=== PATIENT | female | born 1945 | race Caucasian/White ===

== ENCOUNTER → 2016-07-21 | Outpatient (CLI) | payer MEDICARE ==
--- NOTE | 2016-07-23 09:33 | MM ---
Reason for exam: screening (asymptomatic). Last mammogram was performed 1 year ago. History: Patient is postmenopausal. Family history of breast cancer in maternal aunt at age 57, breast cancer in maternal aunt at age 60, breast cancer in sister at age 59, and breast cancer in cousin. Took estrogen for 10 years beginning at age 42. Physical Findings: A clinical breast exam by your physician is recommended on an annual basis and results should be correlated with mammographic findings. MG Screening Mammo w CAD Bilateral CC and MLO view(s) were taken. Prior study comparison: July 19, 2015, bilateral MG screening mammo w CAD. July 14, 2014, bilateral MG screening mammo w CAD. There are scattered fibroglandular densities. No significant changes when compared with prior studies. ASSESSMENT: Benign, BI-RAD 2 RECOMMENDATION: Routine screening mammogram of both breasts in 1 year.
== END | disposition home or self-care (01) ==
LOC: RADMAMWWP 10:07
PROVIDERS: ATTEND Family Medicine
DX: Z12.31 Encounter for screening mammogram for malignant neoplasm of breast (principal)

== ENCOUNTER → 2017-08-05 | Outpatient (CLI) | payer MEDICARE ==
--- NOTE | 2017-08-05 16:30 | BD ---
EXAMINATION TYPE: MG DEXA axial skeleton. DATE OF EXAM: 08/05/2017 COMPARISON: NONE CLINICAL HISTORY: 72-year-old female postmenopausal screening without HRT Height: 5 FT 3 IN Weight: 191 FRAX RISK QUESTIONS: Alcohol (3 or more units per day): NO Family History (Parent hip fracture): NO Glucocorticoids (More than 3mos): NO (Ex: prednisone, prednisolone, methylprednisolone, dexamethasone, and hydrocortisone). History of Fracture in Adulthood: NO Secondary Osteoporosis: 1. Type 1 Diabetes: NO 2. Hyperthyroidism: NO 3. Menopause before 45: YES 4. Malnutrition: NO 5. Chronic liver disease: NO Rheumatoid Arthritis: NO Current Tobacco Use: NO RISK FACTORS HISTORY OF: Family History of Osteoporosis: YES Active: NO Postmenopausal woman:TOTAL HYST AGE 40 Take estrogen and/or progesterone medications: How long: TOOK HRT 3 YEARS NO LONGER MEDICATIONS: Thyroid Medications: YES Which medication: SYNTHROID How Lon YEARS Additional Medications: SYNTHROID ,BUSPAR,PAXIL,HYDROCHLOROTHIAZIDE,ADIVAN Additional History: EXAM MEASUREMENTS: Bone mineral densitometry was performed using the [employer] System. Bone mineral density as measured about the Lumbar spine is: ----- L1-L4(G/cm2): 1.248 T Score Values are as follows: ----- L2: 0.4 ----- L3: 0.6 ----- L4: 0.9 ----- L1-L4: 0.6 Bone mineral density has: INCREASED 3.6 % since study of: 2011 Bone mineral density about the R hip (g/cm2): 1.082 Bone mineral density about the L hip (g/cm2): 1.065 T Score values are as follows: -----R Neck: 0.3 -----L Neck: 0.2 -----R Total: 1.6 -----L Total: 1.7 Bone mineral density has: INCREASED 3.8 % since study of: 2011 IMPRESSION: Normal (Values between +1 and -1 indicate normal bone mass). Consider repeating this study in 5 year s or sooner if there is some new clinical indication. NOTE: T-SCORE=SD OF THE YOUNG ADULT MEAN.
--- NOTE | 2017-08-06 10:06 | MM ---
Reason for exam: screening (asymptomatic). Last mammogram was performed 1 year ago. History: Patient is postmenopausal. Family history of breast cancer in maternal aunt at age 57, breast cancer in maternal aunt at age 60, breast cancer in sister at age 59, and breast cancer in cousin. Took estrogen for 10 years beginning at age 42. Physical Findings: A clinical breast exam by your physician is recommended on an annual basis and results should be correlated with mammographic findings. MG 3D Screening Mammo W/Cad Bilateral CC and MLO view(s) were taken. Prior study comparison: July 21, 2016, bilateral MG screening mammo w CAD. July 19, 2015, bilateral MG screening mammo w CAD. There are scattered fibroglandular densities. No suspicious abnormality. No significant changes when compared with prior studies. ASSESSMENT: Negative, BI-RAD 1 RECOMMENDATION: Routine screening mammogram of both breasts in 1 year.
== END | disposition home or self-care (01) ==
LOC: RADMAMWWP 15:27
PROVIDERS: ATTEND Family Medicine
DX: Z12.31 Encounter for screening mammogram for malignant neoplasm of breast (principal); M89.9 Disorder of bone, unspecified; Z78.0 Asymptomatic menopausal state; Z80.3 Family history of malignant neoplasm of breast
CPT/HCPCS: 77063; 77067; 77080

== ENCOUNTER → 2017-08-17 | Outpatient (CLI) | payer MEDICARE ==
--- NOTE | 2017-08-17 16:42 | XR ---
EXAMINATION TYPE: XR chest 2V DATE OF EXAM: 08/17/2017 COMPARISON: NONE INDICATION: Cough TECHNIQUE: Frontal and lateral views of the chest are obtained. FINDINGS: The heart size is normal. The pulmonary vasculature is normal. The lungs are clear. IMPRESSION: 1. No acute pulmonary process.
== END | disposition home or self-care (01) ==
LOC: RADXRMAIN 15:13
PROVIDERS: ATTEND Family Medicine
DX: R05 Cough (principal)
CPT/HCPCS: 71046

== ENCOUNTER → 2017-10-06 | Outpatient (CLI) | payer MEDICARE ==
--- NOTE | 2017-10-06 11:23 | CT ---
EXAMINATION TYPE: CT chest wo con DATE OF EXAM: 10/06/2017 COMPARISON: 10/14/2011 HISTORY: Cough variant asthma CT DLP: 726.80 mGycm, Automated exposure control for dose reduction was used. CONTRAST: None TECHNIQUE: Axial images were obtained at 1 mm thick sections at 10 mm intervals. This will limit po rtions of the examination which may not be visualized within the [id number]. Images were obtained in the prone and supine views. FINDINGS: Portion of the thyroid visualized is normal. Subglottic airway appears normal. Proximal br onchial tree visualized appears normal. There is some atelectasis within the lingula on the prone images. This removed all resolved on the esparza pine view. No bronchiectasis is evident. No suspicious nodules or masses are evident. No persistent s uspicious infiltrates are evident. No enlarged mediastinal or hilar adenopathy is evident. Few scattered small mediastinal lymph nodes are present not enlarged by CT criteria. The ascending aorta diameter at the level of the main pulmonary artery is 3.2 cm. The main pulmonary artery diameter at the bifurcation is 2.[address] sections are obtained through the upper abdomen. Abdomen is essentially unremarkable. IMPRESSIONS: 1. Normal High Resolution Chest CT.
== END ==
LOC: RADCTMAIN 08:27
PROVIDERS: ATTEND Family Medicine
DX: J45.991 Cough variant asthma (principal)
CPT/HCPCS: 71250

== ENCOUNTER → 2018-02-16 | Outpatient (CLI) | payer MEDICARE ==
--- NOTE | 2018-02-16 16:18 | CT ---
EXAMINATION TYPE: CT pelvis w con DATE OF EXAM: 02/16/2018 COMPARISON: None HISTORY: Pain at hysterectomy incision, goes down bilateral legs and groin. Incisional hernia per ord er. CT DLP: 785 mGycm Automated exposure control for dose reduction was used. CONTRAST: Performed without oral but with IV Contrast, patient injected with 100 mL of Isovue M300. FINDINGS: No suspicious ventral or inguinal hernia identified. Visualized bowel shows no suspicious dilatation. Visualized portion of both ureters and bladder are unremarkable. Uterus is surgically absent. There is no concerning pelvic fluid collection. There is no suspicious pelvic adenopathy. Moderate disc space narrowing with vacuum disc phenomenon L3-L4 and L4-L5 levels is present. There is facet arthropathy lower lumbar levels. There is moderate axial joint space loss in both hips. IMPRESSION: NO SUSPICIOUS FINDING SEEN TO ACCOUNT FOR PATIENT'S SYMPTOMS. NO SIGNIFICANT VENTRAL WALL OR INCISIO NAL HERNIA IDENTIFIED.
== END | disposition home or self-care (01) ==
LOC: RADCTMAIN 14:46
PROVIDERS: ATTEND Surgery
DX: K43.2 Incisional hernia without obstruction or gangrene (principal)
CPT/HCPCS: 82565; 84520; 72193; 36415; Q9967

== ENCOUNTER → 2018-05-18 | Outpatient (CLI) | payer MEDICARE ==
--- NOTE | 2018-05-18 15:51 | XR ---
EXAMINATION TYPE: XR chest 2V DATE OF EXAM: 05/18/2018 COMPARISON: 08/17/2017 HISTORY: Presurgical evaluation. TECHNIQUE: Frontal and lateral views of the chest are obtained. FINDINGS: There is no focal air space opacity, pleural effusion, or pneumothorax seen. The cardiac silhouette size is within normal limits. The osseous structures are intact. Minimal multilevel dege nerative changes of the thoracic spine are noted. IMPRESSION: No acute cardiopulmonary process.
== END | disposition home or self-care (01) ==
LOC: RADXRMAIN 15:37
PROVIDERS: ATTEND Family Medicine
DX: Z01.818 Encounter for other preprocedural examination (principal)
CPT/HCPCS: 71046

== ENCOUNTER → 2018-09-03 | Outpatient (CLI) | payer MEDICARE ==
--- NOTE | 2018-09-06 11:29 | MM ---
Reason for exam: screening (asymptomatic). Last mammogram was performed 1 year and 1 month ago. History: Patient is postmenopausal. Family history of breast cancer in maternal aunt at age 57, breast cancer in maternal aunt at age 60, breast cancer in sister at age 59, and breast cancer in cousin. Took estrogen for 10 years beginning at age 42. Physical Findings: A clinical breast exam by your physician is recommended on an annual basis and results should be correlated with mammographic findings. MG 3D Screening Mammo W/Cad Bilateral CC and MLO view(s) were taken. Prior study comparison: August 05, 2017, bilateral MG 3d screening mammo w/cad. July 21, 2016, bilateral MG screening mammo w CAD. The breast tissue is heterogeneously dense. This may lower the sensitivity of mammography. Benign appearing bilateral calcifications. No suspicious abnormality. No significant changes when compared with prior studies. ASSESSMENT: Benign, BI-RAD 2 RECOMMENDATION: Routine screening mammogram of both breasts in 1 year.
== END ==
LOC: RADMAMWWP 08:56
PROVIDERS: ATTEND Family Medicine
DX: Z12.31 Encounter for screening mammogram for malignant neoplasm of breast (principal)
CPT/HCPCS: 77063; 77067

== ENCOUNTER 2019-04-20 23:25 | Emergency (ER) | payer MEDICARE ==
[2019-04-20 23:34] VITALS: RESP 18; TEMP 98.6
--- NOTE | 2019-04-20 23:57 | ED ---
General Adult HPI - General Chief complaint: Fall Stated complaint: Fall Time Seen by Provider: 04/20/19 23:36 Source: patient, family, RN notes reviewed Mode of arrival: wheelchair Limitations: no limitations - History of Present Illness Initial comments: 74 year old female with a past medical history of asthma, hypertension presents to the emergency department for a chief complaint of fall. Patient states that around 10:30 or approximately an hour prior to arrival patient was walking through her house. States the lights are off. Patient states she tripped over a playpen and fell onto her right hip and right elbow. Patient denies hitting her head. Denies any blood thinners usage. States her right elbow feels okay however she cannot stand on her right hip. States she called ambulance and they helped her into her car. Patient had Tylenol prior to arrival and is refusing pain medication.Patient has no other complaints at this time including shortness of breath, chest pain, abdominal pain, nausea or vomiting, headache, or visual changes. - Related Data Allergies Allergy/AdvReac Type Severity Reaction Status Date / Time No Known Allergies Allergy Verified 04/20/19 23:34 Review of Systems ROS Statement: Those systems with pertinent positive or pertinent negative responses have been documented in the HPI. ROS Other: All systems not noted in ROS Statement are negative. Past Medical History Past Medical History: Asthma, Hypertension History of Any Multi-Drug Resistant Organisms: None Reported Past Surgical History: Bladder Surgery, Cholecystectomy, Hysterectomy Additional Past Surgical History / Comment(s): Eye surg, Past Psychological History: No Psychological Hx Reported Smoking Status: Never smoker Past Alcohol Use History: None Reported Past Drug Use History: None Reported General Exam - General Exam Comments Initial Comments: Patient has full range of motion of the right elbow. Radial pulses 2+. No significant tenderness of the right elbow. Very small superficial abrasion noted over the olecranon. Limitations: no limitations General appearance: alert, in no apparent distress Head exam: Present: atraumatic, normocephalic, normal inspection Eye exam: Present: normal appearance, PERRL, EOMI. Absent: scleral icterus, conjunctival injection, periorbital swelling ENT exam: Present: normal exam, mucous membranes moist, TM's normal bilaterally, normal external ear exam Neck exam: Present: normal inspection, full ROM. Absent: tenderness, meningismus, lymphadenopathy Respiratory exam: Present: normal lung sounds bilaterally. Absent: respiratory distress, wheezes, rales, rhonchi, stridor Cardiovascular Exam: Present: regular rate, normal rhythm, normal heart sounds. Absent: systolic murmur, diastolic murmur, rubs, gallop, clicks GI/Abdominal exam: Present: soft, normal bowel sounds. Absent: distended, tenderness, guarding, rebound, rigid Extremities exam: Present: normal capillary refill (Capillary refill less than 2 seconds, DP pulse 2+ in the right lower extremity.), other (Erythema noted to the lateral aspect of the right lower extremity. Small contusion.) Neurological exam: Present: alert Course Vital Signs 04/20/19 23:27 Temperature 98.6 F Pulse Rate 82 Respiratory 18 Rate Blood Pressure 180/73 O2 Sat by Pulse 97 Oximetry - Reevaluation(s) Reevaluation #1: 04/20/19 23:47 Patient offered pain medication, refusing at this time. She had Tylenol prior to arrival and states this helped with her pain. Medical Decision Making - Medical Decision Making Patient has full range of motion of the right head. Some mild tenderness to the lateral proximal right femur. Neurovascular status intact in the right lower extremity. Patient initially refused pain medication but then did request pain medication which was given to her.X-ray of the pelvis shows no fracture or dislocation. X-ray of the femur shows no acute fracture or dislocation. She was reevaluated. Patient is ambulatory on the right hip and refused a wheelchair to go to the bathroom. Patient walked down the rowan to the bathroom. I discussed possibility of ordering a CAT scan however patient refuses at this time stating her hip feels much better. Patient will be discharged home. However I recommended returning if he has she has any worsening symptoms or becomes unable to ambulate - Radiology Data Radiology results: report reviewed, image reviewed Disposition Clinical Impression: Hip pain, right Disposition: HOME SELF-CARE Condition: Good Instructions (If sedation given, give patient instructions): Hip Pain (ED) Additional Instructions: Please take Motrin and Tylenol for pain. Ice the area. Follow-up with primary care in 1-2 days. If you have any worsening symptoms or are unable to ambulate on the right hip return immediately to the emergency department. Is patient prescribed a controlled substance at d/c from ED?: No Referrals: Tere Powers MD [Primary Care Provider] - 1-2 days Time of Disposition: 00:52
[2019-04-21] MEDS ORDERED: MORPHINE SULFATE 2 MG/ML SYRINGE IM STA (00:16)
--- NOTE | 2019-04-21 00:28 | XR ---
EXAM: XR Right Hip With Pelvis When Performed, 2 or 3 Views CLINICAL HISTORY: History of fall. Unable to ambulate. TECHNIQUE: Two or three views of the right hip, with pelvis when performed. COMPARISON: 02/16/2018. FINDINGS: Bones/joints: Mild osteoarthritic changes about the hip joints are noted. Mild to moderate osteoarthritic changes about the sacroiliac joints are noted, left side more pronounced than the right. Pseudoarthrosis formation of the lateral processes of L5 vertebral body is noted with the bony pelvis. No acute fracture or dislocation. No fracture of the right hip joint is noted. The right femur is unremarkable. Mild osteoarthritic changes about the right knee joint are noted. Soft tissues: Unremarkable. Other findings: Osteitis symphysis pubis is noted. IMPRESSION: No acute fracture or dislocation. Osteoarthritic and degenerative changes as described above.
--- NOTE | 2019-04-21 00:29 | XR ---
EXAM: XR Right Femur, 2 Views CLINICAL HISTORY: Right thigh pain. TECHNIQUE: Frontal and lateral views of the right femur. COMPARISON: None. FINDINGS: Bones/joints: Right hip joint is intact. No acute fracture or dislocation of the right femur is noted. Mild osteoarthritic changes about the right knee joint are noted. Visualized bony pelvis is unremarkable. Soft tissues: The soft tissues are unremarkable. IMPRESSION: No acute fracture or dislocation.
[2019-04-21 01:06] VITALS: BP 121/56; PULSE 75
== END 2019-04-21 01:08 | disposition home or self-care (01) ==
LOC: EC 23:25
DX: M25.551 Pain in right hip (principal); J45.909 Unspecified asthma, uncomplicated; I10 Essential (primary) hypertension
CPT/HCPCS: 73502; 73552; 99283; 96372; J2270

== ENCOUNTER → 2019-07-15 | Outpatient (CLI) | payer MEDICARE ==
--- NOTE | 2019-07-15 15:34 | XR ---
EXAMINATION TYPE: XR lumbar spine 2 or 3V DATE OF EXAM: 07/15/2019 COMPARISON: None HISTORY: Low back pain TECHNIQUE: Three-view lumbar spine FINDINGS: There 5 lumbar-type vertebral bodies. The pedicles are intact. There is narrowing of disc h eight L3-4 L4-5. Posterior disc space narrowing is present L2-3. Some mild diffuse disc space at L5-S 1 is present. Vacuum disc phenomenon is present L2-3 L3-4. Vertebral body heights are preserved. IMPRESSION: 1. Degenerative disc changes greatest L3-4 lumbar spine.
== END | disposition home or self-care (01) ==
LOC: RADXRMAIN 14:33
PROVIDERS: ATTEND Family Medicine
DX: M47.816 Spondylosis without myelopathy or radiculopathy, lumbar region (principal)
CPT/HCPCS: 72100

== ENCOUNTER → 2019-09-21 | Outpatient (CLI) | payer MEDICARE ==
--- NOTE | 2019-09-21 11:21 | MM ---
Reason for exam: screening (asymptomatic). Last mammogram was performed 1 year and 1 month ago. History: Patient is postmenopausal. Family history of breast cancer in maternal aunt at age 57, breast cancer in maternal aunt at age 60, breast cancer in sister at age 59, and breast cancer in cousin. Took estrogen for 10 years beginning at age 42. Physical Findings: A clinical breast exam by your physician is recommended on an annual basis and results should be correlated with mammographic findings. MG 3D Screening Mammo W/Cad Bilateral CC and MLO view(s) were taken. Prior study comparison: September 03, 2018, bilateral MG 3d screening mammo w/cad. August 05, 2017, bilateral MG 3d screening mammo w/cad. There are scattered fibroglandular densities. There is a stable 7mm left upper outer quadrant middle depth mass. Benign appearing bilateral calcifications. No suspicious abnormality. No significant changes when compared with prior studies. ASSESSMENT: Benign, BI-RAD 2 RECOMMENDATION: Routine screening mammogram of both breasts in 1 year.
== END | disposition home or self-care (01) ==
LOC: RADMAMWWP 09:56
PROVIDERS: ATTEND Family Medicine
DX: Z12.31 Encounter for screening mammogram for malignant neoplasm of breast (principal)
CPT/HCPCS: 77063; 77067

== ENCOUNTER 2020-01-16 08:05 | Day surgery (SDC) | payer MEDICARE ==
[2020-01-13 10:02] VITALS: BMI 33.7
[~2020-01-16 08:05] MED LIST: SODIUM CHLORIDE 0.9% 1,000 ML IV SCH
[2020-01-16 08:54] VITALS: RESP 16; TEMP 98.3
[2020-01-16] MEDS ORDERED: SODIUM CHLORIDE 0.9% 500 ML 500 ML IV ONE (08:54)
[2020-01-16 10:46] VITALS: BP 148/76; PULSE 67
--- NOTE | 2020-01-16 13:27 | P.PCN ---
Preoperative Diagnosis: Diagnosis Recurrent dizzy spells Twelve-lead ECG shows sinus rhythm normal KS narrow QRS normal ST segments normal QT interval no epsilon waves no delta waves Tilt table test for protocol Baseline blood pressure 144/67 mmHg Baseline heart rate 80 beats a minute Patient was tilted upright at an angle of 70 per protocol No change in heart rate blood pressure No evidence for neurocardiogenic syncope No evidence for dysautonomia Impression Normal 12-lead ECG Normal heart rate and blood pressure response to upright tilting
== END 2020-01-16 10:47 | disposition home or self-care (01) ==
LOC: CATHEP 08:05
PROVIDERS: ATTEND Internal Medicine Clinical Cardiac Electrophysiology
DX: R42 Dizziness and giddiness (principal); R26.89 Other abnormalities of gait and mobility; Z91.040 Latex allergy status
CPT/HCPCS: 93660

== ENCOUNTER → 2020-02-24 | Outpatient (CLI) | payer MEDICARE ==
--- NOTE | 2020-02-24 08:27 | CT ---
EXAMINATION TYPE: CT brain wo con DATE OF EXAM: 02/24/2020 COMPARISON: None HISTORY: Abnormal imaging, neoplasm of parietal lobe CT DLP: 1017.[address] of the brain was performed. The ventricles, basal cisterns and sulci overlying the cerebral convexities demonstrate mild enlargem ent. There is no evidence for intracranial hemorrhage or sulcal effacement. There is decreased attenuation about the periventricular white matter and deep white matter of both c erebral hemispheres, compatible with chronic small vessel ischemia. Differential diagnosis does inclu de demyelination. No mass effects are seen.No midline shift. Osseous calvarium is intact. If symptoms persist consider MRI. IMPRESSION: 1. Age related atrophic and chronic small vessel ischemic change without acute intracranial process s een at this time. Correlate with any outside studies. Comparison could be performed when and if prior studies do become available.
== END | disposition home or self-care (01) ==
LOC: RADCTMAIN 07:56
PROVIDERS: ATTEND Psychiatry & Neurology Neurology
DX: C71.3 Malignant neoplasm of parietal lobe (principal); G31.1 Senile degeneration of brain, not elsewhere classified; I67.82 Cerebral ischemia
CPT/HCPCS: 70450

== ENCOUNTER → 2020-10-02 | Outpatient (CLI) | payer MEDICARE ==
--- NOTE | 2020-10-04 13:47 | MM ---
Reason for exam: screening (asymptomatic). Last mammogram was performed 1 year ago. History: Patient is postmenopausal. Family history of breast cancer in maternal aunt at age 57, breast cancer in maternal aunt at age 60, breast cancer in sister at age 59, and breast cancer in cousin. Took estrogen for 10 years beginning at age 42. Physical Findings: A clinical breast exam by your physician is recommended on an annual basis and results should be correlated with mammographic findings. MG 3D Screening Mammo W/Cad Bilateral CC and MLO view(s) were taken. Prior study comparison: September 21, 2019, bilateral MG 3d screening mammo w/cad. September 03, 2018, bilateral MG 3d screening mammo w/cad. There are scattered fibroglandular densities. No significant changes when compared with prior studies. ASSESSMENT: Benign, BI-RAD 2 RECOMMENDATION: Routine screening mammogram of both breasts in 1 year.
== END | disposition home or self-care (01) ==
LOC: RADMAMWWP 11:06
PROVIDERS: ATTEND Internal Medicine Geriatric Medicine
DX: Z12.31 Encounter for screening mammogram for malignant neoplasm of breast (principal)
CPT/HCPCS: 77063; 77067

== ENCOUNTER → 2021-10-03 | Outpatient (CLI) | payer MEDICARE ==
--- NOTE | 2021-10-04 09:39 | MM ---
Reason for exam: screening (asymptomatic). Last mammogram was performed 1 year ago. History: Patient is postmenopausal. Family history of breast cancer in daughter, breast cancer in maternal aunt at age 57, breast cancer in maternal aunt at age 60, breast cancer in sister at age 59, and breast cancer in cousin. Took estrogen for 10 years beginning at age 42. Physical Findings: A clinical breast exam by your physician is recommended on an annual basis and results should be correlated with mammographic findings. MG 3D Screening Mammo W/Cad Bilateral CC and MLO view(s) were taken. Prior study comparison: October 02, 2020, bilateral MG 3d screening mammo w/cad. September 21, 2019, bilateral MG 3d screening mammo w/cad. The breast tissue is heterogeneously dense. This may lower the sensitivity of mammography. No significant changes when compared with prior studies. ASSESSMENT: Negative, BI-RAD 1 RECOMMENDATION: Routine screening mammogram of both breasts in 1 year.
== END | disposition home or self-care (01) ==
LOC: RADMAMWWP 10:21
PROVIDERS: ATTEND Family Medicine
DX: Z12.31 Encounter for screening mammogram for malignant neoplasm of breast (principal); Z78.0 Asymptomatic menopausal state; Z80.3 Family history of malignant neoplasm of breast
CPT/HCPCS: 77063; 77067

== ENCOUNTER → 2021-11-12 | Outpatient (CLI) | payer MEDICARE ==
--- NOTE | 2021-11-12 22:25 | BD ---
EXAMINATION TYPE: Axial Bone Density DATE OF EXAM: 11/12/2021 CLINICAL HISTORY: 76 years year old Female. ICD-10 CODE: Z78.0 Post menopausal, M89.9 disorder of silva ne Height: 5 FT 3 IN Weight: 195 FRAX RISK QUESTIONS: Alcohol (3 or more units per day): NO Family History (Parent hip fracture): NO Glucocorticoids (More than 3mos): NO (Ex: prednisone, prednisolone, methylprednisolone, dexamethasone, and hydrocortisone). History of Fracture in Adulthood: NO Secondary Osteoporosis: 1. Type 1 Diabetes: NO 2. Hyperthyroidism: NO 3. Menopause before 45: YES 4. Malnutrition: NO 5. Chronic liver disease: NO Rheumatoid Arthritis: NO Current Tobacco Use: NO RISK FACTORS HISTORY OF: Surgery to Spine/Hip(right/left)/Wrist (right/left): NO Family History of Osteoporosis: NO Active: YES Diet low in dairy products/other sources of calcium: NO Postmenopausal woman: YES Take estrogen and/or progesterone medications: TOO HRT FOR APPROX 4-5 YEARS. NO LONGER TAKES Lost more than 2 inches in height since high school: NO Frequent falls: NO Poor Health: GOOD Hyperparathyroidism: NO Adrenal Insufficiency: NO MEDICATIONS: Thyroid Medications: YES Which medication: SYNTHROID How Long: CLOSE TO 30 YEARS Additional Medications: SYNTHROID, BUSPAR, HYDROCHLOROTHIAZIDE, PAXIL, BRIAN VAN, LAMICTAL, MULTI EYE VIT FOR MACULAR DEGENERATION Additional History: EXAM MEASUREMENTS: Bone mineral densitometry was performed using the [employer] System. Bone mineral density as measured about the Lumbar spine is: ----- L1-L4(G/cm2): 1.295 T Score Values are as follows: ----- L1: 0.6 ----- L2: 0.7 ----- L3: 0.8 ----- L4: 1.3 ----- L1-L4: 1.0 Bone mineral density has: INCREASED 3.2 % since study of: 2018 Bone mineral density about the R hip (g/cm2): 1.093 Bone mineral density about the L hip (g/cm2): 1.056 T Score values are as follows: -----R Neck: 0.4 -----L Neck: 0.1 -----R Total: 1.7 -----L Total: 1.4 Bone mineral density has: DECREASED -1.1 % since study of: 2018 FRAX%s: The graph provided illustrates a 7.2 % chance for a major osteoporotic fx and a 0.6 % chance for the hips probability for fx in 10 years time. IMPRESSION: Normal (Values between +1 and -1 indicate normal bone mass). Consider repeating this study in 5 year s or sooner if there is some new clinical indication. NOTE: T-SCORE=SD OF THE YOUNG ADULT MEAN.
== END | disposition home or self-care (01) ==
LOC: RADBDWWP 10:25
PROVIDERS: ATTEND Family Medicine
DX: M89.9 Disorder of bone, unspecified (principal); Z78.0 Asymptomatic menopausal state
CPT/HCPCS: 77080

== ENCOUNTER → 2022-10-07 | Outpatient (CLI) | payer MEDICARE ==
--- NOTE | 2022-10-08 08:50 | MM ---
Reason for Exam: Screening (asymptomatic). Last mammogram was performed 1 year(s) and 1 month(s) ago. Patient History: Menarche at age 12. First Full-Term at age 23. Left ovary removed at age 42. Right ovary removed at age 42. Hysterectomy at age 42. Postmenopausal. Estrogen for 10 years from age 42 until age 52. Maternal cousin had breast cancer. Maternal aunt had breast cancer, age 57. Maternal aunt had breast cancer, age 60. Sister had breast cancer, age 59. Daughter had breast cancer. Risk Values: Emily 5 year model risk: 7.0%. NCI Lifetime model risk: 13.0%. Prior Study Comparison: 09/21/2019 Bilateral Screening Mammogram, [facility]. 10/02/2020 Bilateral Screening Mammogram, [facility]. 10/03/2021 Bilateral Screening Mammogram, [facility]. Tissue Density: The breast tissue is heterogeneously dense. This may lower the sensitivity of mammography. Findings: Analyzed By CAD. Pattern appears stable. Some chronic nodularity is in the lower outer anterior right breast, present previously. No significant interval changes. No suspicious groups of microcalcifications, spiculated or lobular masses, architectural distortion or other secondary signs of malignancy are mammographically apparent. Overall Assessment: Benign, BI-RAD 2 Management: Screening Mammogram of both breasts in 1 year. A negative mammogram report should not preclude additional follow up of suspicious palpable abnormalities. Patient should continue monthly self breast exam. A clinical breast exam by your physician is recommended on an annual basis and results should be correlated with mammographic findings. Electronically signed and approved by: Castillo Bolivar D.O. Radiologis
== END | disposition home or self-care (01) ==
LOC: RADMAMWWP 11:35
PROVIDERS: ATTEND Family Medicine
DX: Z12.31 Encounter for screening mammogram for malignant neoplasm of breast (principal); Z78.0 Asymptomatic menopausal state; Z80.3 Family history of malignant neoplasm of breast
CPT/HCPCS: 77063; 77067

== ENCOUNTER 2022-11-21 10:37 | Day surgery (SDC) | payer MEDICARE ==
[2022-11-19 14:10] VITALS: BMI 33.5
[~2022-11-21 10:37] MED LIST changes: +LACTATED RINGERS 1,000 ML IV SCH; -SODIUM CHLORIDE 0.9% 1,000 ML IV SCH
[2022-11-21 12:56] VITALS: TEMP 97.5
[2022-11-21] MEDS ORDERED: PROPOFOL 10 MG/ML 20 ML VIAL IV ONE (14:34)
--- NOTE | 2022-11-21 15:14 | P.PCN ---
Date of Procedure: 11/21/22 Procedure(s) Performed: BRIEF HISTORY: Patient is a 77-year-old pleasant white female scheduled for an elective colonoscopy as a part of surveillance of prior history of colon polyps. Last colonoscopy was 3 years ago. PROCEDURE PERFORMED: Colonoscopy with snare polypectomy and tattooing with Dorothy ink PREOPERATIVE DIAGNOSIS: History of colon polyps. IV sedation per Anesthesia. PROCEDURE: After informed consent was obtained, the patient, was brought into the endoscopy unit. IV sedation was administered by Anesthesia under continuous monitoring. Digital rectal examination was normal. Initially the Olympus CF-160 flexible video colonoscope was then inserted in the rectum, gradually advanced into the cecum without any difficulty. Careful examination was performed as the scope was gradually being withdrawn. Ileocecal valve and the appendiceal orifice were visualized and appeared normal. Prep was excellent. Mucosa of the cecum, ascending colon appeared normal. In the hepatic flexure there was a 3 cm broad- based polyp that was removed by piecemeal snare polypectomy and almost complete polypectomy was accomplished. Following polypectomy tattooing was performed with Dorothy ink. Rest of the, transverse colon, appeared normal. In the descending colon there was a 5 limited polyp removed by snare polypectomy. descending colon, sigmoid colon, and rectum appeared normal. Retroflexion was performed in the rectum and no lesions were seen. The patient tolerated the procedure well. IMPRESSION: 3 cm broad-based hepatic flexure polyp status post piecemeal snare polypectomy and almost complete polypectomy accomplished, status post tattooing with Dorothy ink 5 mm descending colon polyp status post snare polyp rectum RECOMMENDATIONS: Findings of this examination were discussed with the patient as well as a family.. She was advised to follow with the biopsy results. She'll be seen in office in 2 weeks. Reason the biopsy results will plan a repeat colonoscopy in 6 months to ensure complete polypectomy
[2022-11-21 15:36] VITALS: BP 142/73; PULSE 78; RESP 18
== END 2022-11-21 16:01 | disposition home or self-care (01) ==
LOC: ORWHC2ENDO 10:37
PROVIDERS: ATTEND Internal Medicine Gastroenterology
DX: Z12.11 Encounter for screening for malignant neoplasm of colon (principal); D12.3 Benign neoplasm of transverse colon; D12.4 Benign neoplasm of descending colon; I10 Essential (primary) hypertension; K21.9 Gastro-esophageal reflux disease without esophagitis; E03.9 Hypothyroidism, unspecified; J45.909 Unspecified asthma, uncomplicated; Z98.51 Tubal ligation status; Z79.51 Long term (current) use of inhaled steroids; Z86.010 Personal history of colon polyps; Z79.899 Other long term (current) drug therapy; Z79.890 Hormone replacement therapy
CPT/HCPCS: 45381; 88305; 45385; J2704; 44404

== ENCOUNTER 2023-05-12 09:21 | Day surgery (SDC) | payer MEDICARE ==
[~2023-05-12 09:21] MED LIST changes: +LIDOCAINE 1% (10MG/ML) FOR IV START INTRADERMA PRN
[2023-05-12 10:16] VITALS: RESP 16; TEMP 97.1
[2023-05-12] MEDS ORDERED: ONDANSETRON 4 MG/2 ML VIAL ONE (10:16)
[2023-05-12] MEDS ORDERED: PROPOFOL 10 MG/ML 20 ML VIAL IV ONE (10:41)
--- NOTE | 2023-05-12 11:18 | P.PCN ---
Date of Procedure: 05/12/23 Procedure(s) Performed: BRIEF HISTORY: Patient is a 78-year-old pleasant white female scheduled for an elective colonoscopy as a part of follow-up of large hepatic flexure polyp noted on a routine screening colonoscopy in November 2022. The polyp was 3 cm broad-based and removed with snare polypectomy and biopsy revealed tubular adenoma. She is scheduled for a repeat surveillance colonoscopy to ensure complete polypectomy PROCEDURE PERFORMED: Colonoscopy With snare polypectomy, argon plasma ablation and Endo Clip placement PREOPERATIVE DIAGNOSIS: Follow-up large hepatic flexure polyp noted on a colonoscopy in November 2022 IV sedation per Anesthesia. PROCEDURE: After informed consent was obtained, the patient, was brought into the endoscopy unit. IV sedation was administered by Anesthesia under continuous monitoring. Digital rectal examination was normal. Initially the Olympus CF-160 flexible video colonoscope was then inserted in the rectum, gradually advanced into the cecum without any difficulty. Careful examination was performed as the scope was gradually being withdrawn. Ileocecal valve and the appendiceal orifice were visualized and appeared normal. Prep was excellent. Mucosa of the cecum, ascending colon normal. There was too centimeter residual polyp noted in hepatic flexure and this was snare polypectomy. Some polyp tissue could not be that and hence argon plasma coagulation was performed. Following the polypectomy Endo Clip was placed to prevent post-polypectomy bleed. Rest of the , transverse colon, descending colon, sigmoid colon, and rectum appeared normal. Retroflexion was performed in the rectum and no lesions were seen. The patient tolerated the procedure well. IMPRESSION: 2 cm broad-based with severe hepatic flexure polyp status post snare polypectomy followed by argon plasma coagulation and Endo Clip placement rest of the colon appeared normal. RECOMMENDATIONS: Findings of this examination were discussed with the patient .as well as a family. She was advised to follow with the biopsy results. She'll be seen in office in 2 weeks. Based on the biopsy results will plan a repeat colonoscopy in 6 months
[2023-05-12 11:56] VITALS: BP 115/66; PULSE 76
== END 2023-05-12 12:10 | disposition home or self-care (01) ==
LOC: ORWHC2ENDO 09:21
PROVIDERS: ATTEND Internal Medicine Gastroenterology
DX: D12.3 Benign neoplasm of transverse colon (principal); I10 Essential (primary) hypertension; E78.5 Hyperlipidemia, unspecified; G47.33 Obstructive sleep apnea (adult) (pediatric); M19.90 Unspecified osteoarthritis, unspecified site; Z91.040 Latex allergy status; Z98.890 Other specified postprocedural states; Z79.899 Other long term (current) drug therapy
CPT/HCPCS: 88305; 45382; 45385; 45388; J2405; J2704

== ENCOUNTER → 2023-10-12 | Outpatient (CLI) | payer MEDICARE ==
--- NOTE | 2023-10-13 12:47 | MM ---
Reason for Exam: Screening (asymptomatic). Last screening mammogram was performed 12 month(s) ago. Patient History: Menarche at age 12. First Full-Term at age 23. Left ovary removed at age 42. Right ovary removed at age 42. Hysterectomy at age 42. Postmenopausal. Estrogen for 10 years from age 42 until age 52. Maternal cousin had breast cancer. Maternal aunt had breast cancer, age 57. Maternal aunt had breast cancer, age 60. Sister had breast cancer, age 59. Daughter had breast cancer, age 48. Risk Values: Emily 5 year model risk: 6.9%. NCI Lifetime model risk: 12.1%. Prior Study Comparison: 10/02/2020 Bilateral Screening Mammogram, [facility]. 10/03/2021 Bilateral Screening Mammogram, [facility]. 10/07/2022 Bilateral MG 3D screening mammo w/cad, [facility]. Tissue Density: There are scattered areas of fibroglandular density. Findings: Analyzed By CAD. There is no suspicious group of microcalcifications or new suspicious mass in either breast. Overall Assessment: Benign, BI-RAD 2 Management: Screening Mammogram of both breasts in 1 year. . Patient should continue monthly self-breast exams. A clinical breast exam by your physician is recommended on an annual basis. This exam should not preclude additional follow-up of suspicious palpable abnormalities. Note on Emily scores and lifetime risk: 1. A Emily score greater than 3% is considered moderate risk. If this is the case, consider specialist referral to assess eligibility for a risk reducing agent. 2. If overall lifetime risk for the development of breast cancer is 20% or higher, the patient may qualify for future screening with alternating mammogram and breast MRI. Electronically signed and approved by: Dileep Mcdowell M.D. Radiologis
== END | disposition home or self-care (01) ==
LOC: RADMAMWWP 10:45
PROVIDERS: ATTEND Family Medicine
DX: Z12.31 Encounter for screening mammogram for malignant neoplasm of breast (principal); Z78.0 Asymptomatic menopausal state; Z80.3 Family history of malignant neoplasm of breast
CPT/HCPCS: 77063; 77067

== ENCOUNTER 2023-11-04 06:40 | Day surgery (SDC) | payer MEDICARE ==
[2023-11-03 10:21] VITALS: BMI 33.5
[~2023-11-04 06:40] MED LIST changes: -LACTATED RINGERS 1,000 ML IV SCH
[2023-11-04] MEDS: LACTATED RINGERS 1,000 ML IV SCH (07:22)
[2023-11-04] MEDS ORDERED: PROPOFOL 10 MG/ML 20 ML VIAL IV ONE (07:50)
[2023-11-04 08:08] VITALS: TEMP 97.1
[2023-11-04 08:58] VITALS: BP 137/76; PULSE 79
[2023-11-04 08:59] VITALS: RESP 18
--- NOTE | 2023-11-04 09:48 | P.PCN ---
Date of Procedure: 11/04/23 Procedure(s) Performed: BRIEF HISTORY: Patient is a 78-year-old pleasant female scheduled for an elective colonoscopy as a part of follow-up of large hepatic flexure polyp noted on colonoscopy in November 2022. She had a repeat surveillance colonoscopy in May 2023 and was noted to have a 2 cm residual polyp in the hepatic flexure that was removed by snare polypectomy. She is scheduled for repeat colonoscopy today. PROCEDURE PERFORMED: Colonoscopy with snare polypectomy. PREOPERATIVE DIAGNOSIS: Follow-up large hepatic flexure polyp diagnosed in November 2022. IV sedation per Anesthesia. PROCEDURE: After informed consent was obtained, the patient, was brought into the endoscopy unit. IV sedation was administered by Anesthesia under continuous monitoring. Digital rectal examination was normal. Initially the Olympus CF-160 flexible video colonoscope was then inserted in the rectum, gradually advanced into the cecum without any difficulty. Careful examination was performed as the scope was gradually being withdrawn. Ileocecal valve and the appendiceal orifice were visualized and appeared normal. Prep was excellent. Mucosa of the cecum, appeared normal. In the hepatic show there was a 5 mm residual hepatic flexure polyp at the site of previous polypectomy that was removed by cold biopsy. Adjacent to this area there were 2 polyps measuring 5 mm in size that were removed by cold snare polypectomy. In the descending colon there was a 6 mm polyp that was removed by cold snare polypectomy. In the sigmoid colon there was a 3 mm polyp that was removed by cold snare polypectomy. Rest of the sigmoid colon, and rectum appeared normal. Retroflexion was performed in the rectum and no lesions were seen. The patient tolerated the procedure well. IMPRESSION: 5 mm residual hepatic lecture polyp status post removal by cold biopsy 5 mm x 2 hepatic flexure polyps adjacent to this area removed by cold snare polypectomy 6 mm descending colon polyp status post cold snare polypectomy 3 mm sigmoid polyp status post cold snare polypectomy RECOMMENDATIONS: Findings of this examination were discussed with the patient as well as her family. She was advised to follow with the biopsy results and have repeat surveillance colonoscopy in 1 year..
== END 2023-11-04 09:24 | disposition home or self-care (01) ==
LOC: ORWHC2ENDO 06:40
PROVIDERS: ATTEND Internal Medicine Gastroenterology
DX: Z12.11 Encounter for screening for malignant neoplasm of colon (principal); D12.4 Benign neoplasm of descending colon; D12.5 Benign neoplasm of sigmoid colon; D12.3 Benign neoplasm of transverse colon; J45.909 Unspecified asthma, uncomplicated; G47.33 Obstructive sleep apnea (adult) (pediatric); K21.9 Gastro-esophageal reflux disease without esophagitis; F90.9 Attention-deficit hyperactivity disorder, unspecified type; M19.90 Unspecified osteoarthritis, unspecified site; Z91.040 Latex allergy status; Z79.899 Other long term (current) drug therapy; Z79.890 Hormone replacement therapy; Z90.710 Acquired absence of both cervix and uterus; Z90.49 Acquired absence of other specified parts of digestive tract
CPT/HCPCS: 88305; 45380; 45385; J2704

== ENCOUNTER 2024-05-05 09:05 | Emergency (ER) | payer MEDICARE ==
[2024-05-05 09:24] VITALS: RESP 18; TEMP 98
--- NOTE | 2024-05-05 09:42 | ED ---
Fall HPI - General Chief Complaint: Fall Stated Complaint: L wrist pain/fall Time Seen by Provider: 05/05/24 09:32 Source: patient, RN notes reviewed Mode of arrival: ambulatory Limitations: no limitations - History of Present Illness Initial Comments: 79-year-old female presents to the emergency department after falling on left wrist yesterday while working in the yard. She states that pain is in the medial aspect of wrist rated 8/10, non radiating. She states that she has decreased active range of motion and passive range of motion to left wrist, denies numbness and tingling to the fingers, denies hitting head and loss of consciousness. Denies taking blood thinners - Related Data Home Medications Medication Instructions Recorded Confirmed Albuterol Inhaler [Ventolin Hfa 2 puff INHALATION RT-QID PRN 01/12/20 11/04/23 Inhaler] Budesonide-Formot 160-4.5 Mcg 2 puff INHALATION BID 01/12/20 11/04/23 [Symbicort 160-4.5 Mcg Inhaler] LORazepam [Ativan] 0.5 mg PO TID PRN 01/12/20 11/04/23 Levothyroxine Sodium 112 mcg PO QAM 01/12/20 11/04/23 Montelukast Sodium [Singulair] 10 mg PO HS 01/12/20 11/04/23 busPIRone HCL [Buspar] 45 mg PO BID 01/12/20 11/04/23 hydroCHLOROthiazide 25 mg PO DAILY 01/12/20 11/04/23 lamoTRIgine 100 mg PO QAM 01/12/20 11/04/23 lamoTRIgine [LaMICtal Odt] 200 mg PO HS 01/12/20 11/04/23 PARoxetine HCL [PARoxetine HCL Cr] 50 mg PO HS 11/03/23 11/04/23 Maldivian Laxative 1 dose PO DAILY PRN 11/03/23 11/04/23 Allergies Allergy/AdvReac Type Severity Reaction Status Date / Time latex Allergy Itching Verified 05/05/24 09:18 Review of Systems ROS Statement: Those systems with pertinent positive or pertinent negative responses have been documented in the HPI. ROS Other: All systems not noted in ROS Statement are negative. Past Medical History Past Medical History: Asthma, GERD/Reflux, Osteoarthritis (OA), Sleep Apnea/CPAP/BIPAP, Thyroid Disorder Additional Past Medical History / Comment(s): flat polyp in the colon,constipation, NO CPAP MACHINE , VERTIGO AT TIMES , SHAKINESS OF HANDS AT TIMES, Hemorrhoids. History of Any Multi-Drug Resistant Organisms: None Reported Past Surgical History: Bladder Surgery, Cholecystectomy, Hysterectomy, Tubal Ligation Additional Past Surgical History / Comment(s): cataract surgery with implants- bilateral, D&C , BLADDER SLING AND CYSTOCELE REPAIR , RIGHT EAR SURGERY, colonoscopy. Past Anesthesia/Blood Transfusion Reactions: Motion Sickness, Postoperative Nausea & Vomiting (PONV) Past Psychological History: ADD/ADHD Smoking Status: Never smoker Past Alcohol Use History: None Reported Past Drug Use History: None Reported - Past Family History Daughter(s) Family Medical History: Cancer, Deep Vein Thrombosis (DVT) Additional Family Medical History / Comment(s): 2 daughter had DVTs,breast CA General Exam Limitations: no limitations Course Vital Signs 05/05/24 05/05/24 09:19 10:55 Temperature 98 F 98 F Pulse Rate 73 71 Respiratory 18 18 Rate Blood Pressure 123/56 120/64 O2 Sat by Pulse 97 97 Oximetry Medical Decision Making - Medical Decision Making Was pt. sent in by a medical professional or institution (, PA, [employer], urgent care, hospital, or half-way...) When possible be specific @ -No Did you speak to anyone other than the patient for history (EMS, parent, family, police, friend...)? What history was obtained from this source @ -No Did you review nursing and triage notes (agree or disagree)? Why? @ -I reviewed and agree with nursing and triage notes Were old charts reviewed (outside hosp., previous admission, EMS record, old EKG, old radiological studies, urgent care reports/EKG's, half-way records)? Report findings @ -No old charts were reviewed Differential Diagnosis (chest pain, altered mental status, abdominal pain women, abdominal pain men, vaginal bleeding, weakness, fever, dyspnea, syncope, headache, dizziness, GI bleed, back pain, seizure, CVA, palpatations, mental health, musculoskeletal)? @ -Fall, wrist sprain, wrist fracture EKG interpreted by me (3pts min.). @ -None X-rays interpreted by me (1pt min.). @ -X-ray left left wrist shows no acute fracture CT interpreted by me (1pt min.). @ -None done U/S interpreted by me (1pt. min.). @ -None done What testing was considered but not performed or refused? (CT, X-rays, U/S, labs)? Why? @ -None What meds were considered but not given or refused? Why? @ -None Did you discuss the management of the patient with other professionals (professionals i.e. Dr., PA, [employer], lab, RT, psych nurse, social contact worker, oil truck driver, teacher, supervisor dog license officer, comp field case manager)? Give summary @ -No Was smoking cessation discussed for >3mins.? @ -No Was critical care preformed (if so, how long)? @ -No Were there social determinants of health that impacted care today? How? (Homelessness, low income, unemployed, alcoholism, drug addiction, transportation, low edu. Level, literacy, decrease access to med. care, penitentiary, rehab)? @ -No Was there de-escalation of care discussed even if they declined (Discuss DNR or withdrawal of care, Hospice)? DNR status @ -No What co-morbidities impacted this encounter? (DM, HTN, Smoking, COPD, CAD, Cancer, CVA, ARF, Chemo, Hep., AIDS, mental health diagnosis, sleep apnea, morbid obesity)? @ -None Was patient admitted / discharged? Hospital course, mention meds given and route, prescriptions, significant lab abnormalities, going to OR and other pertinent info. @ -Hospital course Undiagnosed new problem with uncertain prognosis? @ -No Drug Therapy requiring intensive monitoring for toxicity (Heparin, Nitro, Insulin, Cardizem)? @ -No Were any procedures done? @ -No Diagnosis/symptom? @ -Left wrist sprain Acute, or Chronic, or Acute on Chronic? @ -Acute Uncomplicated (without systemic symptoms) or Complicated (systemic symptoms)? @ -Uncomplicated Side effects of treatment? @ -No Exacerbation, Progression, or Severe Exacerbation? @ -No Poses a threat to life or bodily function? How? (Chest pain, [place], [place], pneumonia, PE, COPD, DKA, ARF, appy, cholecystitis, CVA, Diverticulitis, Homicidal, Suicidal, threat to staff... and all critical care pts) @ -No Disposition Clinical Impression: Fall, Left wrist sprain Disposition: HOME SELF-CARE Condition: Stable Instructions (If sedation given, give patient instructions): Wrist Sprain (ED) Additional Instructions: Please return to the Emergency Department if symptoms worsen or any other concerns. Prescriptions: Acetaminophen-Codeine 300-30mg [Tylenol #3] 1 tab PO Q4H PRN #12 tablet PRN Reason: pain Is patient prescribed a controlled substance at d/c from ED?: Yes When asked, does pt state using other controlled substances?: No If prescribed controlled substance>3 days was MAPS reviewed?: Prescribed <3 Days If opioid is for acute pain is fill amount 7 days or less?: Yes If Rx opioid, was Start Talking consent form obtained?: Yes Referrals: Tere Powers MD [Primary Care Provider] - 1-2 days Time of Disposition: 10:47
[2024-05-05] MEDS: KETOROLAC 15 MG/ML 1 ML VIAL IM STA (09:51)
--- NOTE | 2024-05-05 10:36 | XR ---
Left wrist HISTORY: Pain following fall. COMPARISON: None. TECHNIQUE: 4 views left wrist are obtained. FINDINGS: There is no fracture, dislocation, intraosseous, intra-articular soft tissue abnormality. IMPRESSION: No significant abnormality seen. [facility], , 05/05/2024 10:34 AM
[2024-05-05 10:56] VITALS: BP 120/64; PULSE 71
== END 2024-05-05 10:55 | disposition home or self-care (01) ==
LOC: EC 09:05
CPT/HCPCS: 96372; 99283

== ENCOUNTER → 2024-11-24 | Outpatient (CLI) | payer MEDICARE ==
--- NOTE | 2024-11-24 10:19 | MM ---
Reason for Exam: Screening (asymptomatic). Last mammogram was performed 1 year(s) and 1 month(s) ago. Patient History: Menarche at age 12. First Full-Term at age 23. Left ovary removed at age 42. Right ovary removed at age 42. Hysterectomy at age 42. Postmenopausal. Estrogen for 10 years from age 42 until age 52. Maternal cousin had breast cancer. Maternal aunt had breast cancer, age 57. Maternal aunt had breast cancer, age 60. Maternal aunt had breast cancer, age 55. Sister had breast cancer, age 59. Daughter had breast cancer, age 48. Risk Values: Emily 5 year model risk: 6.8%. NCI Lifetime model risk: 11.1%. Prior Study Comparison: 10/03/2021 Bilateral Screening Mammogram, [facility]. 10/07/2022 Bilateral MG 3D screening mammo w/cad, [facility]. 10/12/2023 Bilateral MG 3D screening mammo w/cad, [facility]. Tissue Density: There are scattered areas of fibroglandular density. Findings: Analyzed By CAD. Right breast: There is no suspicious group of microcalcifications or new suspicious mass. Left breast: There is no suspicious group of microcalcifications or new suspicious mass. Overall Assessment: Negative, BI-RAD 1 Management: Screening Mammogram of both breasts in [address] [facility] will attempt to contact patient to return for supplemental views and ultrasound if indicated. Patient should continue monthly self-breast exams. A clinical breast exam by your physician is recommended on an annual basis. This exam should not preclude additional follow-up of suspicious palpable abnormalities. Note on Emily scores and lifetime risk: 1. A Emily score greater than 3% is considered moderate risk. If this is the case, consider specialist referral to assess eligibility for a risk reducing agent. 2. If overall lifetime risk for the development of breast cancer is 20% or higher, the patient may qualify for future screening with alternating mammogram and breast MRI. [facility], , 11/24/2024 10:12 AM. Electronically signed and approved by: Celestine Cummins DO
== END | disposition home or self-care (01) ==
LOC: RADMAMWWP 09:31
PROVIDERS: ATTEND Family Medicine
DX: Z12.31 Encounter for screening mammogram for malignant neoplasm of breast (principal); R92.323 Mammographic fibroglandular density, bilateral breasts; Z78.0 Asymptomatic menopausal state; Z80.3 Family history of malignant neoplasm of breast
CPT/HCPCS: 77063; 77067